=== PATIENT | male | born 1975 | race Caucasian/White ===

== ENCOUNTER 2019-04-22 23:31 | Emergency (ER) | payer MEDICARE, OTHER ==
[~2019-04-22] VITALS: Ht 180.3 cm; Wt 56.7 kg
--- NOTE | 2019-04-22 23:50 | NUR ---
PATIENT CAME TO ER BED [address] FROM [address] BY SEAN. PATIENT STATES HE SMOKED WEED AND FEELS ANXIOUS. PATIENT STATES "I JUST WANT TO SLEEP". PATIENT IS AAOX3. NO SOB. BREATHING EVENLY AND UNLABORED ON ROOM AIR. CONNECTED TO MONITOR.
[2019-04-23] MEDS ORDERED: LORAZEPAM 1 MG TABLET ONE (00:15)
[2019-04-23 00:28] LABS: BASOPHILS % (AUTO) 0.3 % (0.0-2.0); EOSINOPHILS % (AUTO) 2.1 % (0.0-6.0); HEMATOCRIT 39 % (39-51); HEMOGLOBIN 12.7 g/dL (13.5-17.5); LYMPHOCYTES # (AUTO) 1.7 /CMM (0.8-4.8); LYMPHOCYTES % (AUTO) 15.3 % (20.0-44.0); MEAN CORPUSCULAR HGB CONC 33 g/dl (31.0-36.0); MEAN CORPUSCULAR VOLUME 83 fL (80-96); MONOCYTES # (AUTO) 0.6 /CMM (0.1-1.30); NEUTROPHILS # (AUTO) 8.8 /CMM (1.8-8.9); NEUTROPHILS % (AUTO) 77.3 % (43.0-81.0); PLATELET COUNT (AUTO) 441 /CMM (150-450); RED BLOOD CELL COUNT(AUTO) 4.66 MIL/uL (4.5-6.0); WHITE BLOOD COUNT (AUTO) 11.4 K/uL (4.3-11.0)
[2019-04-23] MEDS ORDERED: LORAZEPAM 1 MG TABLET PO ONE (00:30)
[2019-04-23] MEDS ORDERED: IV NS 0.9% 1,000 ML BAG IV ONE (00:30)
[2019-04-23 00:39] LABS: CALCIUM, SERUM 8.9 mg/dL (8.5-10.1); POTASSIUM 3.3 mmol/L (3.5-5.1)
--- NOTE | 2019-04-23 01:49 | NUR ---
Patient discharged to home in stable condition. Written and verbal after care instructions given. Patient verbalizes understanding of instruction.
--- NOTE | 2019-04-23 01:49 | NUR ---
IV removed. Catheter intact and site benign. Pressure and 4x4 applied to site. No bleeding noted.
[2019-04-23 02:05] VITALS: BP 109/76
== END 2019-04-23 02:05 | disposition home or self-care (01) ==
LOC: ER 23:33
DX: F41.9 Anxiety disorder, unspecified (principal); F12.90 Cannabis use, unspecified, uncomplicated; I10 Essential (primary) hypertension; F17.200 Nicotine dependence, unspecified, uncomplicated
CPT/HCPCS: 36415; 80048; 85025; 93005; 99284; J7030